=== PATIENT | male | born 1945 | race Two or more races ===

== ENCOUNTER 2018-09-07 07:35 | Day surgery (SDC) | payer OTHER ==
[2018-09-06 11:35] VITALS: BMI 18.8
[~2018-09-07 07:35] MED LIST: ACETAMINOPHEN 325 MG TABLET (FP) PO PRN; TOBRAMYCIN/DEXAMETHASONE OPHTH. OINTMENT 1 TUBE TP ONE
[2018-09-07] MEDS ORDERED: TROPICAMIDE 1% OPHTH SOLN 15 ML BOTTLE ONE (07:41)
[2018-09-07] MEDS ORDERED: KETOROLAC TROMETHAMINE 0.5% EYE DROP 1 DROP DROPS ONE (07:41)
[2018-09-07] MEDS: TROPICAMIDE 1% OPHTH SOLN 15 ML BOTTLE OP SCH ×3 (08:10→08:49)
[2018-09-07] MEDS: PHENYLEPHRINE 2.5% OPHTH SOLN 15 ML BOTTLE OP SCH ×3 (08:10→08:45)
[2018-09-07] MEDS: CIPROFLOXACIN HCL 0.3% OPHTH 2.5ML BOTTLE OP SCH ×3 (08:10→08:45)
--- NOTE | 2018-09-07 09:35 | HP ---
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) Current Medications: Ambulatory Orders Quetiapine Fumarate [Seroquel -] 25 mg PO HS 02/10/18 Sertraline HCl 100 mg PO DAILY 02/10/18 Acetaminophen [Tylenol .Regular Strength -] 650 mg PO Q4H PRN tablet 02/20/18 Cyanocobalamin (Vitamin B-12) [B-12] 2,500 mcg SL DAILY #30 tab.subl 02/20/18 Hydrochlorothiazide 25 mg PO DAILY 09/06/18 Sennosides [Senna -] 1 tab PO HS 09/06/18 Allergies/Adverse Reactions: Allergies Allergy/AdvReac Type Severity Reaction Status Date / Time aspirin Allergy Elevated Verified 09/07/18 08:08 Blood Pressure Sulfa (Sulfonamide Allergy Elevated Verified 09/07/18 08:08 Antibiotics) Blood Pressure Ocular Examination - Best Corrected Visual Acuity Distance: Right eye: 20/70- Distance: Left eye: 20/50 - External/Slit Lamp Examination Abnormalities: decreased TBUT - Intraocular Pressure Intraocular Pressure - Right eye: 15 Intraocular Pressure-Left eye: 15 - Lens Lens: 2-3+ NS - Vitreous/Retina Vitreous/Retina: c:d 0.2 m/v/p wnl - Special Examination M - Right eye: -4.75 -0.75 x 085 M - Left eye: -2.75-1.25 x090 K - Right eye: 44.5/45 x165 K - Left eye: 44/44.75 x005 AL - Right eye: 23.22 AL - Left eye: 23.29 IOL bag: +20.5 AUOOTO IOL sulcus: +19.5 MN60AC IOL AC: +17.0 [id number] - Impression Impression: Cataract Right Eye - Plan Plan: Phacoemulsification and cataract extraction - IOL Right eye Post-hospital care will be provided in office on: 09/08/18
--- NOTE | 2018-09-07 09:36 | HP ---
History & Physical Update - History History: No Change - Physical Physical: No Change - Assessment Assessment: No Change - Plan Plan: No Change (Reivewed H and P by dr. Randle from 08/30/18 no change)
[2018-09-07] MEDS ORDERED: MIDAZOLAM HCL 2 MG/2 ML SINGLE DOSE VIAL ONE (09:43)
[2018-09-07] MEDS ORDERED: TETRACAINE 0.5% OPHTH SOLN 2 ML BOTTLE OD ONE (09:50)
[2018-09-07] MEDS ORDERED: POVIDONE-IODINE 5% OPHTHALMIC PREP 30 ML SOLUTION OD ONE (09:51)
[2018-09-07] MEDS ORDERED: LIDOCAINE HCL 1% PRESERVATIVE FREE - 30ML VIAL IO ONE (09:57)
[2018-09-07] MEDS ORDERED: BSS (NA/CA/MG/K) BALANCED SALT SOLUTION OPHTH SOLN 15 ML BOTTLE OD ONE (09:57)
[2018-09-07] MEDS ORDERED: CHONDROITIN SU A/HYALUR SOD 1 KIT IO ONE (09:57)
[2018-09-07] MEDS ORDERED: EPINEPHrine/PF 1 MG/1 ML (1:1,000) AMPULE SQ ONE (10:02)
[2018-09-07] MEDS ORDERED: TOBRAMYCIN/DEXAMETHASONE OPHTH. OINTMENT 1 TUBE TP ONE (10:17)
--- NOTE | 2018-09-07 10:23 | OP ---
Ophthalmology Operative Note Pre-Operative Diagnosis: Cataract Affected Eye: Right Operation: Phacoemulsification and cataract extraction with PCIOL Findings: Ns Cataract right eye Post-Operative Diagnosis: Same as Pre-op Community Health Nurse: None Anesthesiologist: Justin Servin Anesthesia: Topical Specimens Removed: none Estimated blood loss: < 1 cc Drains & Tubes with Location: none Operative Report Dictated: Yes
[2018-09-07 10:38] VITALS: TEMP 97.9
--- NOTE | 2018-09-07 10:45 | OP ---
DATE OF OPERATION: 09/07/2018 PREOPERATIVE DIAGNOSIS: Nuclear sclerotic cataract, right eye. POSTOPERATIVE DIAGNOSIS: Nuclear sclerotic cataract, right eye. PROCEDURE: Phacoemulsification and cataract extraction with insertion of posterior chamber intraocular lens, right eye. SURGEON: Alethea Goode MD DROP WIRE HANGER: None. ANESTHESIA: Topical. ELECTROCARDIOGRAPH TECHNICIAN: Justin Servin CRNA OPERATIVE PROCEDURE: The patient received Tetracaine eye drops and was gently sedated and prepped and draped in the usual sterile fashion so as to expose only the right eye. Ophthalmic Betadine was instilled into the inferior fornix and lashes were taped out of the surgical field. An eyelid speculum was placed into the right eye. Paracentesis was made in supero temporal clear cornea at the limbus. Then 0.5 mL of nonpreserved lidocaine 1% was injected into the anterior chamber and then 1 mL of dilute epinephrine 1:10,000 was injected into the anterior chamber to improve pupillary dilation. Viscoelastic material was instilled into the anterior chamber via the paracentesis. A 2.4-mm keratome blade was then used to create the main incision in temporal clear cornea at the limbus. A continuous curvilinear capsulorhexis was performed using a cystotome and Utrata forceps. Hydrodissection of the lens cortex was performed using BSS on a cannula until the nucleus was noted to be freely rotating. The phacoemulsification tip was then inserted via the main wound and used to scope 2 perpendicular grooves into the lens nucleus. The nucleus was cracked into 4 quadrants. Each quadrant was lifted out of the capsule into the iris plane and individually phacoemulsified. The remaining cortical material was then aspirated using the irrigation/aspiration port. The capsular bag was inflated using ProVisc and a preloaded AcrySof lens model AU00T0 power +20.5 diopters was injected into the capsular bag. It was centered using a Sinskey hook. The residual viscoelastic material was removed from the anterior chamber using irrigation and aspiration. The wound edges were hydrated using BSS. The wound was tested for leakage and was found to be watertight. Tobradex ointment was placed in the eye , and the speculum was removed from the eye, and the eyelid was closed. A sterile dressing and shield were placed over the eye. The patient was transferred to the recovery room in stable condition, told to follow up in 1 day. Cinthia [id number] MTDD
[2018-09-07 11:33] VITALS: BP 134/72; PULSE 77
== END 2018-09-07 11:34 | disposition home or self-care (01) ==
LOC: JASU-SURG 07:35
PROVIDERS: ATTEND Ophthalmology
PROC: 08RJ3JZ Replacement of Right Lens with Synthetic Substitute, Percutaneous Approach (ICD-10-PCS; principal; 2018-09-07 09:30)
DX: H25.11 Age-related nuclear cataract, right eye (principal)

== ENCOUNTER 2018-10-12 07:00 | Day surgery (SDC) | payer OTHER ==
[2018-10-11 18:28] VITALS: BMI 18.8
[~2018-10-12 07:00] MED LIST changes: +CIPROFLOXACIN HCL 0.3% OPHTH 2.5ML BOTTLE OP SCH; +PHENYLEPHRINE 2.5% OPHTH SOLN 15 ML BOTTLE OP SCH; +TROPICAMIDE 1% OPHTH SOLN 15 ML BOTTLE OP SCH
[2018-10-12] MEDS ORDERED: TOBRAMYCIN/DEXAMETHASONE OPHTH. OINTMENT 1 TUBE ONE (07:24)
[2018-10-12] MEDS ORDERED: CHONDROITIN SU A/HYALUR SOD 1 KIT ONE ×2 (07:24→10:12)
[2018-10-12] MEDS ORDERED: LIDOCAINE HCL/PF 1% SDV 5ML VIAL ONE (07:34)
[2018-10-12] MEDS ORDERED: TETRACAINE 0.5% OPHTH SOLN 2 ML BOTTLE ONE (07:34)
[2018-10-12] MEDS ORDERED: CIPROFLOXACIN HCL 0.3% OPHTH 2.5ML BOTTLE ONE (07:41)
[2018-10-12] MEDS ORDERED: PHENYLEPHRINE 2.5% OPHTH SOLN 15 ML BOTTLE ONE (07:41)
[2018-10-12] MEDS ORDERED: TROPICAMIDE 1% OPHTH SOLN 15 ML BOTTLE ONE (07:41)
--- NOTE | 2018-10-12 09:36 | HP ---
History & Physical Update - History History: No Change - Physical Physical: No Change - Assessment Assessment: No Change (Reviewed Dr. Catarina Randle' H and P from 09/21/18 no changes ) - Plan Plan: No Change
--- NOTE | 2018-10-12 09:40 | HP ---
- Patient Scheduled date of Surgery: 10/12/18 Scheduled Surgical Procedure: Phacoemulsification and cataract extraction with PCIOL Affected Eye: Left Chief Complaint (Indication for surgery): Decreased vision affecting ADLs - Ocular History Other Eye History: Other (lucia) Eye Medications: vigamox , AT Previous Eye Surgery: s/p ce/pciol OD - Medical History Illnesses: Hypertension, Other (depression s/p amputaion of hand) Current Medications: Ambulatory Orders Quetiapine Fumarate [Seroquel -] 25 mg PO HS 02/10/18 Sertraline HCl 100 mg PO DAILY 02/10/18 Acetaminophen [Tylenol .Regular Strength -] 650 mg PO Q4H PRN tablet 02/20/18 Cyanocobalamin (Vitamin B-12) [B-12] 2,500 mcg SL DAILY #30 tab.subl 02/20/18 Hydrochlorothiazide 25 mg PO DAILY 09/06/18 Sennosides [Senna -] 1 tab PO HS 09/06/18 Allergies/Adverse Reactions: Allergies Allergy/AdvReac Type Severity Reaction Status Date / Time aspirin Allergy Elevated Verified 10/12/18 07:33 Blood Pressure Sulfa (Sulfonamide Allergy Elevated Verified 10/12/18 07:33 Antibiotics) Blood Pressure Ocular Examination - Best Corrected Visual Acuity Distance: Right eye: 20/25 Distance: Left eye: 20/50 - External/Slit Lamp Examination Abnormalities: decreased TBUT - Intraocular Pressure Intraocular Pressure - Right eye: 10 Intraocular Pressure-Left eye: 15 - Lens Lens: 2+ NS 1+ cortical change - Vitreous/Retina Vitreous/Retina: C:D 0.2 m/v/p wnl - Special Examination M - Right eye: plano-0.50 x 090 M - Left eye: -2.75 -1.25 x 090 K - Right eye: 44/44.50 x 005 K - Left eye: 43.75/44.75 x 180 AL - Right eye: 23.22 AL - Left eye: 23.29 IOL bag: +20.5 AUOOTO IOL sulcus: +19.5 MN60AC IOL AC: +17.0 MTA 4uo - Impression Impression: Cataract Left Eye - Plan Plan: Phacoemulsification and cataract extraction - IOL Left eye Post-hospital care will be provided in office on: 10/12/18
[2018-10-12] MEDS ORDERED: TETRACAINE 0.5% OPHTH SOLN 2 ML BOTTLE OS ONE (09:49)
[2018-10-12] MEDS ORDERED: MIDAZOLAM HCL 2 MG/2 ML SINGLE DOSE VIAL ONE (09:50)
[2018-10-12] MEDS ORDERED: POVIDONE-IODINE 5% OPHTHALMIC PREP 30 ML SOLUTION OS ONE (09:54)
[2018-10-12] MEDS ORDERED: BSS (NA/CA/MG/K) BALANCED SALT SOLUTION OPHTH SOLN 15 ML BOTTLE OS ONE (10:03)
[2018-10-12] MEDS ORDERED: CHONDROITIN SU A/HYALUR SOD 1 KIT IO ONE (10:03)
[2018-10-12] MEDS ORDERED: LIDOCAINE HCL 1% PRESERVATIVE FREE - 30ML VIAL IO ONE (10:03)
[2018-10-12] MEDS ORDERED: EPINEPHrine/PF 1 MG/1 ML (1:1,000) AMPULE ONE (10:08)
[2018-10-12] MEDS ORDERED: EPINEPHrine/PF 1 MG/1 ML (1:1,000) AMPULE SQ ONE ×2 (10:09→10:14)
[2018-10-12] MEDS ORDERED: TOBRAMYCIN/DEXAMETHASONE OPHTH. OINTMENT 1 TUBE TP ONE (10:30)
--- NOTE | 2018-10-12 10:36 | OP ---
Ophthalmology Operative Note Pre-Operative Diagnosis: Cataract Affected Eye: Left Operation: Phacoemulsification and cataract extraction with PCIOL Findings: ns cataract left eye Post-Operative Diagnosis: Same as Pre-op Medical Office Technology Instructor: None Anesthesiologist: Candice Field MD Anesthesia: Topical Specimens Removed: none Estimated blood loss: < 1 cc Drains & Tubes with Location: none Operative Report Dictated: Yes
[2018-10-12 10:48] VITALS: TEMP 98
[2018-10-12 13:48] VITALS: BP 117/51; PULSE 71
--- NOTE | 2018-10-12 14:05 | OP ---
DATE OF OPERATION: 10/12/2018 DATE OF DICTATION: 10/12/2018 PREOPERATIVE DIAGNOSIS: Nuclear sclerotic cataract, left eye. POSTOPERATIVE DIAGNOSIS: Nuclear sclerotic cataract, left eye. PROCEDURE: Phacoemulsification and cataract extraction with insertion of posterior chamber intraocular lens, left eye. SURGEON: Alethea Goode MD [place] COORDINATOR: None. ANESTHESIA: Topical. ANESTHESIOLOGIST: Candice Field MD OPERATIVE PROCEDURE: The patient received Tetracaine eye drops and was gently sedated and prepped and draped in the usual sterile fashion so as to expose only the left eye. Ophthalmic Betadine was instilled into the inferior fornix and lashes were taped out of the surgical field. An eyelid speculum was placed into the left eye. Paracentesis was made in inferior temporal clear cornea at the limbus. Then 0.5 mL of nonpreserved lidocaine 1% was injected into the anterior chamber and then 1 mL of dilute epinephrine 1:10,000 was injected into the anterior chamber to improve pupillary dilation. Viscoelastic material was instilled into the anterior chamber via the paracentesis. A 2.4-mm keratome blade was then used to create the main incision in temporal clear cornea at the limbus. A continuous curvilinear capsulorrhexis was performed using a cystotome and Utrata forceps. Hydrodissection of the lens cortex was performed using BSS on a cannula until the nucleus was noted to be freely rotating. The phacoemulsification tip was then inserted via the main wound and used to scope 2 perpendicular grooves into the lens nucleus. The nucleus was cracked into 4 quadrants. Each quadrant was lifted out of the capsule into the iris plane and individually phacoemulsified. The remaining cortical material was then aspirated using the irrigation/aspiration port. The capsular bag was inflated using ProVisc and a preloaded AcrySof lens model [id number] power +20.5 diopters was injected into the capsular bag. It was centered using a Sinskey hook. The residual viscoelastic material was removed from the anterior chamber using irrigation and aspiration. The wound edges were hydrated using BSS. The wound was tested for leakage and was found to be watertight. Tobradex ointment was placed in the eye, and the speculum was removed from the eye, and the eyelid was closed. A sterile dressing and shield were placed over the eye. The patient was transferred to the recovery room in stable condition, told to follow up in 1 day. ALETHEA GOODE M.D. JUSTIN/[id number]
== END 2018-10-12 12:00 | disposition home or self-care (01) ==
LOC: JASU-SURG 07:00
PROVIDERS: ATTEND Ophthalmology
PROC: 08RK3JZ Replacement of Left Lens with Synthetic Substitute, Percutaneous Approach (ICD-10-PCS; principal; 2018-10-12 10:30)
DX: H25.12 Age-related nuclear cataract, left eye (principal); I10 Essential (primary) hypertension

== ENCOUNTER 2020-08-19 08:54 | Inpatient (IN) | payer OTHER ==
[2020-08-19] MEDS ORDERED: LACTATED RINGERS SOLUTION 1000 ML INFUS.BAG IV ONE (11:15)
[2020-08-19 11:57] LABS: BASO % 0.6 % (0-2.0); EOS % 0.1 % (0-4.5); HEMATOCRIT 23.8 % (35.4-49); HEMOGLOBIN 8.3 GM/dL (11.7-16.9); LYMPH % 11.2 % (8-40); MCH 31.3 pg (25.7-33.7); MCHC 34.9 g/dl (32.0-35.9); MEAN CELL VOLUME 89.8 fl (80-96); MONO % 6.2 % (3.8-10.2); NEUT % 81.9 % (42.8-82.8); PLATELET COUNT 219 10^3/uL (134-434); RBC 2.65 M/mm3 (4.00-5.60); RDW 14.9 % (11.9-15.9); WHITE BLOOD COUNT 7.6 K/mm3 (4.0-10.0)
[2020-08-19 12:03] LABS: INR 1.14 (0.83-1.09); PROTHROMBIN TIME (PATIENT) 13.7 SEC (9.7-13.0)
[2020-08-19 12:06] LABS: ACTIVATED PTT 25.2 SECONDS (25.2-36.5)
[2020-08-19 12:07] LABS: CHLORIDE 90 mmol/L (98-107); SODIUM 129 mmol/L (136-145)
[2020-08-19 12:10] LABS: ALBUMIN 2.6 g/dl (3.4-5.0)
[2020-08-19 12:11] LABS: BLOOD UREA NITROGEN 25.7 mg/dL (7-18); CO2 26 mmol/L (21-32); GLUCOSE,RANDOM 103 mg/dL (74-106)
[2020-08-19 12:13] LABS: CREATININE 1.4 mg/dL (0.55-1.3); SGOT/AST 11 U/L (15-37)
[2020-08-19 12:15] LABS: BILIRUBIN,TOTAL 2.6 mg/dL (0.2-1); TOT PROT 6.2 g/dl (6.4-8.2)
[2020-08-19 12:16] LABS: ALK PHOS 108 U/L (45-117)
[2020-08-19 12:19] LABS: N-TERMINAL BNP 2811.2 pg/ml (5-125)
[2020-08-19 12:34] LABS: ANION GAP 12 MMOL/L (8-16); SGPT/ALT 12 U/L (13-61)
[2020-08-19] MEDS ORDERED: KCL 10 MEQ IVPB 30 MEQ/300 ML INFUS.BAG IVPB ONE (12:36)
[2020-08-19] MEDS ORDERED: SODIUM CHLORIDE 0.9% 500 ML INFUS.BAG IV ONE (12:39)
[2020-08-19] MEDS: KCL 10 MEQ IVPB 10 MEQ/100 ML INFUS.BAG IVPB SCH ×3 (13:00→15:15)
[2020-08-19 13:59] LABS: EPI CELLS 3 /uL (0-25.1); HYALINE CASTS 2 /uL (0-3.1); URINE APPEARANCE CLEAR; URINE BILIRUBIN 1+ (NEGATIVE); URINE COLOR ORANGE; URINE GLUCOSE (UA) NEGATIVE (NEGATIVE); URINE KETONE NEGATIVE (NEGATIVE); URINE LEUK ESTERASE TRACE (NEGATIVE); URINE NITRITE POSITIVE (NEGATIVE); URINE PROTEIN TRACE (NEGATIVE); URINE RBC 64 /uL (0-23.9); URINE WBC 7 /uL (0-25.8)
[2020-08-19 15:00] LABS: URINE BACTERIA 13.3 /uL (0-1359)
[2020-08-19] MEDS ORDERED: ACETAMINOPHEN 325 MG TABLET (FP) PO PRN (15:20)
[2020-08-19 19:50] LABS: CHLORIDE 91 mmol/L (98-107); SODIUM 129 mmol/L (136-145)
[2020-08-19 19:54] LABS: BLOOD UREA NITROGEN 23.2 mg/dL (7-18); CALCIUM 8.3 mg/dL (8.5-10.1); CO2 27 mmol/L (21-32); GLUCOSE,RANDOM 97 mg/dL (74-106); MAGNESIUM 2.5 mg/dL (1.8-2.4)
[2020-08-19 19:58] LABS: CHOLESTEROL 120 mg/dL (50-200); CREATININE 1.1 mg/dL (0.55-1.3); IRON SERUM 37 ug/dL (50-175); TOTAL IRON BINDING CAPACITY 200 ug/dL (250-450); TRIGLYCERIDES 124 mg/dL (0-150)
[2020-08-19 19:59] LABS: LDL CHOLESTEROL (ONLY SJRH) 72 mg/dL (5-100)
[2020-08-19 20:01] LABS: HDL CHOLESTEROL 30 mg/dL (40-60)
[2020-08-19 20:10] LABS: ANION GAP 12 MMOL/L (8-16)
[2020-08-19] MEDS: ATORVASTATIN CA 40 MG TABLET (FP) PO SCH (21:39)
[2020-08-19] MEDS: PANTOPRAZOLE SODIUM 40 MG VIAL IVPUSH SCH (21:39)
[2020-08-19] MEDS ORDERED: POTASSIUM CHLORIDE TABS 20 MEQ TABLET.ER (FP) PO ONE (21:46)
[2020-08-20 08:32] LABS: BASO % 0.7 % (0-2.0); EOS % 1.1 % (0-4.5); HEMATOCRIT 18.9 % (35.4-49); MCH 31.6 pg (25.7-33.7); MCHC 35.2 g/dl (32.0-35.9); MEAN CELL VOLUME 89.9 fl (80-96); MEAN PLT VOLUME 7.7 fl (7.5-11.1); MONO % 7.2 % (3.8-10.2); PLATELET COUNT 195 10^3/uL (134-434); RDW 15.1 % (11.9-15.9)
[2020-08-20 08:55] LABS: ALBUMIN 2.4 g/dl (3.4-5.0); CALCIUM 7.9 mg/dL (8.5-10.1)
[2020-08-20 08:56] LABS: BLOOD UREA NITROGEN 25.4 mg/dL (7-18)
[2020-08-20 08:59] LABS: CREATININE 1.2 mg/dL (0.55-1.3)
[2020-08-20 09:01] LABS: TOT PROT 5.4 g/dl (6.4-8.2)
[2020-08-20 09:03] LABS: BILIRUBIN,TOTAL 2.6 mg/dL (0.2-1)
[2020-08-20 09:04] LABS: N-TERMINAL BNP 7580.4 pg/ml (5-125)
[2020-08-20 09:05] LABS: HEMOGLOBIN 6.6 GM/dL (11.7-16.9)
[2020-08-20] MEDS: PANTOPRAZOLE SODIUM 40 MG VIAL IVPUSH SCH ×2 (09:21→22:02)
[2020-08-20] MEDS: SERTRALINE HCL 50 MG TABLET (FP) PO SCH (09:21)
[2020-08-20] MEDS: ATORVASTATIN CA 40 MG TABLET (FP) PO SCH (22:02)
[2020-08-21 07:43] LABS: BILIRUBIN,DIRECT 0.8 mg/dL (0.0-0.2)
[2020-08-21] MEDS: SERTRALINE HCL 50 MG TABLET (FP) PO SCH (10:49)
[2020-08-21] MEDS: PANTOPRAZOLE SODIUM 40 MG VIAL IVPUSH SCH ×2 (10:49→21:24)
[2020-08-21 11:18] LABS: BASO % 1.5 % (0-2.0); EOS % 0.5 % (0-4.5); HEMATOCRIT 27.2 % (35.4-49); HEMOGLOBIN 9.5 GM/dL (11.7-16.9); LYMPH % 24.4 % (8-40); MCH 30.2 pg (25.7-33.7); MCHC 34.9 g/dl (32.0-35.9); MEAN CELL VOLUME 86.4 fl (80-96); MONO % 6.4 % (3.8-10.2); NEUT % 67.2 % (42.8-82.8); PLATELET COUNT 182 10^3/uL (134-434); RBC 3.15 M/mm3 (4.00-5.60); RDW 16.5 % (11.9-15.9); WHITE BLOOD COUNT 5.4 K/mm3 (4.0-10.0)
[2020-08-21 12:08] LABS: ALBUMIN 2.6 g/dl (3.4-5.0); CALCIUM 8.1 mg/dL (8.5-10.1)
[2020-08-21 12:09] LABS: BILIRUBIN,TOTAL 4.1 mg/dL (0.2-1)
[2020-08-21 12:11] LABS: CREATININE 1.2 mg/dL (0.55-1.3)
[2020-08-21 12:13] LABS: TOT PROT 5.5 g/dl (6.4-8.2)
[2020-08-21 12:38] VITALS: BMI 17.8
[2020-08-21] MEDS: ATORVASTATIN CA 40 MG TABLET (FP) PO SCH (21:24)
[2020-08-22 07:41] LABS: BLOOD UREA NITROGEN 28.2 mg/dL (7-18)
[2020-08-22 07:42] LABS: CALCIUM 7.9 mg/dL (8.5-10.1)
[2020-08-22 07:43] LABS: ALBUMIN 2.4 g/dl (3.4-5.0)
[2020-08-22 07:46] LABS: BASO % 0.8 % (0-2.0); BILIRUBIN,TOTAL 3.3 mg/dL (0.2-1); EOS % 1.2 % (0-4.5); HEMATOCRIT 26.3 % (35.4-49); HEMOGLOBIN 9.2 GM/dL (11.7-16.9); LYMPH % 22.7 % (8-40); MCH 30.2 pg (25.7-33.7); MEAN CELL VOLUME 86.3 fl (80-96); MONO % 8.1 % (3.8-10.2); NEUT % 67.2 % (42.8-82.8); PLATELET COUNT 181 10^3/uL (134-434); RBC 3.05 M/mm3 (4.00-5.60); RDW 16.9 % (11.9-15.9); TOT PROT 5.7 g/dl (6.4-8.2); WHITE BLOOD COUNT 4.5 K/mm3 (4.0-10.0)
[2020-08-22] MEDS ORDERED: POTASSIUM CHLORIDE TABS 20 MEQ TABLET.ER (FP) PO ONE ×2 (08:23→13:33)
[2020-08-22] MEDS: SERTRALINE HCL 50 MG TABLET (FP) PO SCH (09:43)
[2020-08-22] MEDS: MULTIVITAMINS THER W-MINERALS COMBO TABLET (FP) PO SCH (09:43)
[2020-08-22] MEDS: PANTOPRAZOLE 40 MG TABLET PO SCH (14:22)
[2020-08-22] MEDS: ATORVASTATIN CA 40 MG TABLET (FP) PO SCH (21:31)
[2020-08-23 08:05] LABS: ALBUMIN 2.5 g/dl (3.4-5.0); BLOOD UREA NITROGEN 32.1 mg/dL (7-18); CALCIUM 7.9 mg/dL (8.5-10.1); MAGNESIUM 2.7 mg/dL (1.8-2.4)
[2020-08-23 08:10] LABS: TOT PROT 5.7 g/dl (6.4-8.2)
[2020-08-23] MEDS: MULTIVITAMINS THER W-MINERALS COMBO TABLET (FP) PO SCH (09:56)
[2020-08-23] MEDS: PANTOPRAZOLE 40 MG TABLET PO SCH (09:56)
[2020-08-23] MEDS: SERTRALINE HCL 50 MG TABLET (FP) PO SCH (09:56)
[2020-08-23] MEDS: ATORVASTATIN CA 40 MG TABLET (FP) PO SCH (21:07)
[2020-08-24 08:04] LABS: HEMATOCRIT 25.8 % (35.4-49); HEMOGLOBIN 8.6 GM/dL (11.7-16.9); MCH 29.7 pg (25.7-33.7); MCHC 33.4 g/dl (32.0-35.9); MEAN CELL VOLUME 89.1 fl (80-96); MEAN PLT VOLUME 7.8 fl (7.5-11.1); PLATELET COUNT 163 10^3/uL (134-434); RBC 2.89 M/mm3 (4.00-5.60)
[2020-08-24 08:24] LABS: ALBUMIN 2.6 g/dl (3.4-5.0); CALCIUM 8.4 mg/dL (8.5-10.1)
[2020-08-24 08:28] LABS: BILIRUBIN,TOTAL 3.3 mg/dL (0.2-1)
[2020-08-24 08:49] LABS: INR 1.15 (0.83-1.09); PROTHROMBIN TIME (PATIENT) 14.1 SEC (9.7-13.0)
[2020-08-24 08:51] LABS: ACTIVATED PTT 23.7 SECONDS (25.2-36.5)
[2020-08-24] MEDS: MULTIVITAMINS THER W-MINERALS COMBO TABLET (FP) PO SCH (10:16)
[2020-08-24] MEDS: PANTOPRAZOLE 40 MG TABLET PO SCH (10:16)
[2020-08-24] MEDS: SERTRALINE HCL 50 MG TABLET (FP) PO SCH (10:16)
[2020-08-24] MEDS: ATORVASTATIN CA 40 MG TABLET (FP) PO SCH (21:27)
[2020-08-25 07:00] LABS: BASO % 0.9 % (0-2.0); EOS % 2.4 % (0-4.5); HEMATOCRIT 23.8 % (35.4-49); HEMOGLOBIN 8.2 GM/dL (11.7-16.9); LYMPH % 24.3 % (8-40); MCH 29.9 pg (25.7-33.7); MCHC 34.3 g/dl (32.0-35.9); MEAN CELL VOLUME 87.2 fl (80-96); MEAN PLT VOLUME 7.2 fl (7.5-11.1); MONO % 8.9 % (3.8-10.2); NEUT % 63.5 % (42.8-82.8); PLATELET COUNT 161 10^3/uL (134-434); RBC 2.73 M/mm3 (4.00-5.60); RDW 15.9 % (11.9-15.9); WHITE BLOOD COUNT 3.3 K/mm3 (4.0-10.0)
[2020-08-25] MEDS ORDERED: FUROSEMIDE 40 MG/4 ML INJECTABLE VIAL IVPUSH ONE ×2 (08:30→15:45)
[2020-08-25] MEDS: PANTOPRAZOLE 40 MG TABLET PO SCH (09:32)
[2020-08-25] MEDS: SERTRALINE HCL 50 MG TABLET (FP) PO SCH (09:32)
[2020-08-25] MEDS: MULTIVITAMINS THER W-MINERALS COMBO TABLET (FP) PO SCH (09:33)
[2020-08-25] MEDS ORDERED: PT OWN MED DRAWER 7, Y5N ONE (16:50)
[2020-08-25] MEDS: AMINO ACIDS/PROTEIN HYDROLYS 30 ML LIQUID.PKT PO SCH (17:43)
[2020-08-25] MEDS: ATORVASTATIN CA 40 MG TABLET (FP) PO SCH (21:17)
[2020-08-26 05:46] VITALS: TEMP 98.2
[2020-08-26 07:35] LABS: BASO % 0.6 % (0-2.0); EOS % 1.5 % (0-4.5); HEMATOCRIT 31.2 % (35.4-49); HEMOGLOBIN 10.8 GM/dL (11.7-16.9); LYMPH % 20.3 % (8-40); MCH 30.3 pg (25.7-33.7); MCHC 34.5 g/dl (32.0-35.9); MEAN CELL VOLUME 87.8 fl (80-96); MEAN PLT VOLUME 7.3 fl (7.5-11.1); MONO % 10.9 % (3.8-10.2); NEUT % 66.7 % (42.8-82.8); PLATELET COUNT 176 10^3/uL (134-434); RBC 3.55 M/mm3 (4.00-5.60); RDW 15.3 % (11.9-15.9); WHITE BLOOD COUNT 4.2 K/mm3 (4.0-10.0)
[2020-08-26 08:37] VITALS: BP 101/61; PULSE 84
[2020-08-26] MEDS: AMINO ACIDS/PROTEIN HYDROLYS 30 ML LIQUID.PKT PO SCH (08:58)
[2020-08-26] MEDS: PANTOPRAZOLE 40 MG TABLET PO SCH (09:00)
[2020-08-26] MEDS: SERTRALINE HCL 50 MG TABLET (FP) PO SCH (09:00)
[2020-08-26] MEDS: MULTIVITAMINS THER W-MINERALS COMBO TABLET (FP) PO SCH (09:00)
[2020-08-26 09:10] LABS: ANISOCYTOSIS 1+; MACROCYTOSIS 0; OVALOCYTE 1+; PLATELET ESTIMATE NORMAL; TEAR DROP CELLS 1+
[2020-08-26 17:08] LABS: VON WILLEBRAND ANTIGEN 374 % (50-200)
== END 2020-08-26 11:05 | disposition home health service (06) | DRG 605 ==
LOC: JER 08:54 → JERBED 14:08 → J4W 20:40
PROVIDERS: ADMIT Family Medicine; ATTEND Family Medicine
PROC: 30243N1 Transfusion of Nonautologous Red Blood Cells into Central Vein, Percutaneous Approach (ICD-10-PCS; principal; 2020-08-20)
DX: S70.12XA Contusion of left thigh, initial encounter (principal); E87.1 Hypo-osmolality and hyponatremia; I10 Essential (primary) hypertension; J44.9 Chronic obstructive pulmonary disease, unspecified; F32.9 Major depressive disorder, single episode, unspecified; E78.5 Hyperlipidemia, unspecified; R06.00 Dyspnea, unspecified; E87.6 Hypokalemia; D64.9 Anemia, unspecified; X58.XXXA Exposure to other specified factors, initial encounter; Y93.89 Activity, other specified; Y92.89 Other specified places as the place of occurrence of the external cause; Y99.8 Other external cause status
CPT/HCPCS: 36415; 36430; 36511; 70450-TC; 71045-TC-FY; 71250-TC; 73700-TC-RT; 76705-TC; 80048; 80053; 80061; 81003; 82248; 82272; 82550; 82728; 83036; 83540; 83550; 83721; 83735; 83880; 84443; 84484; 85025; 85027; 85240; 85246; 85247; 85384; 85610; 85730; 86850; 86900; 86901; 86922; 93005; 93010; 93306-TC; 93971-TC; 97116-GP; 97162-GP; 99285-25; C9803; P9038; P9058; U0003; U0005